=== PATIENT | male | born 1955 | race Two or more races ===

== ENCOUNTER 2023-10-01 18:31 | Emergency (ER) | payer SELFPAY ==
[~2023-10-01] VITALS: Ht 170.2 cm; Wt 57.3 kg
[2023-10-01 18:39] VITALS: BP 137/98; PULSE 74; RESP 16; TEMP 97.6; O2SAT 96
== END 2023-10-01 21:42 | disposition left against medical advice (07) ==
LOC: ER 18:32
DX: M79.89 Other specified soft tissue disorders (principal); H57.12 Ocular pain, left eye; Z53.21 Procedure and treatment not carried out due to patient leaving prior to being seen by health care provider
CPT/HCPCS: 73140

== ENCOUNTER 2023-12-24 19:38 | Inpatient (IN) | payer MEDICARE, MEDICAID ==
[~2023-12-24] VITALS: Ht 170.2 cm; Wt 65.0 kg
[2023-12-24 21:47] LABS: BASOPHILS % (AUTO) 0.2 % (0-1); EOSINOPHILS % (AUTO) 0.1 % (0-6); HEMATOCRIT 35.7 % (42.0-52.0); HEMOGLOBIN 11.9 g/dl (14.0-17.9); LYMPHOCYTES # (AUTO) 0.5 X10'3 (1.1-4.8); LYMPHOCYTES % (AUTO) 3.2 % (21-51); MEAN CORPUSCULAR HEMOGLOBIN 29.1 PG (27.0-31.0); MEAN CORPUSCULAR HGB CONC 33.2 g/dL (33.0-36.5); MEAN CORPUSCULAR VOLUME 87.7 FL (78-98); MEAN PLATELET VOLUME 5.8 FL (7.4-10.4); MONOCYTES % (AUTO) 7.2 % (2-12); NEUTROPHILS # (AUTO) 12.8 X10'3 (1.8-7.7); NEUTROPHILS % (AUTO) 89.3 % (42-75); PLATELET COUNT 230 X10'3 (140-440); RED BLOOD COUNT 4.07 X10'6 (4.70-6.10); RED CELL DISTRIBUTION WIDTH 15.2 % (11.5-14.5); WHITE BLOOD COUNT 14.3 X10'3 (4.5-11.0)
[2023-12-24] MEDS: normal saline 1000ML IV soln IV ONE (21:49)
[2023-12-24 22:01] LABS: ALANINE AMINOTRANSFERASE 57 U/L (12-78); ALBUMIN 4.1 G/DL (3.4-5.0); ALBUMIN/GLOBULIN RATIO 0.9 (1.1-1.5); ALKALINE PHOSPHATASE 92 IU/L (46-116); ANION GAP 11 (8-16); ASPARTATE AMINO TRANSFERASE 162 U/L (10-37); BILIRUBIN,TOTAL 1.9 MG/DL (0.1-1.0); BLOOD UREA NITROGEN 33 MG/DL (7-18); BUN/CREATININE RATIO 14.5 (10.0-20.0); CALCIUM 9.6 MG/DL (8.5-10.1); CHLORIDE 100 MMOL/L (99-107); CREATININE 2.28 MG/DL (0.60-1.10); ETHANOL < 10 MG/DL (<10); GLUCOSE 107 MG/DL (70-104); LIPASE 38 U/L (16-77); MAGNESIUM 2.8 MG/DL (1.5-2.4); POTASSIUM 3.8 MMOL/L (3.5-5.1); SODIUM 134 MMOL/L (135-145); TOTAL CARBON DIOXIDE 23.1 MMOL/L (24-32); TOTAL PROTEIN 8.5 G/DL (6.4-8.2); eCRCL 28 ML/MIN; eGFR 29 ML/MIN
[2023-12-24] MEDS ORDERED: heparin 10,000 units/1 ML INJ IV ONE (22:15)
[2023-12-24] MEDS: normal saline 1000ML IV soln IVB ONE (22:23)
[2023-12-24] MEDS: aspirin 81mg tab.chew PO ONE (22:27)
[2023-12-24] MEDS: heparin 25,000 UNIT/250ml bag 250 ML IV PRN (22:42)
[2023-12-24] MEDS: MESSAGE TO NURSING IV ONE (22:55)
[2023-12-24] MEDS: heparin 10,000 units/1 ML INJ IV PRN (22:56)
[2023-12-24 23:19] LABS: INR 1.1 INR; PROTHROMBIN TIME 12.2 SECONDS (9.0-12.0)
[2023-12-24 23:25] LABS: ANISOCYTOSIS FEW; PLATELET ESTIMATE NORMAL; TOTAL CELLS COUNTED 100
[2023-12-24 23:30] LABS: APTT 20 SECONDS (22-32)
[2023-12-24 23:47] LABS: CREATINE KINASE 7406 U/L (39-308)
[2023-12-24] MEDS: ringers solution, lacted 1,000 ML IV SCH (23:48)
[2023-12-25] VITALS (8 sets, daily range): BP systolic 127–144; BP diastolic 66–79; PULSE 70–98; RESP 13–21; TEMP 97.8–98.4; O2SAT 96–100
[2023-12-25] MEDS ORDERED: mag hydrox/Alum hydrox/simeth 30ml oral suspension PO PRN
[2023-12-25] MEDS ORDERED: potassium Cl 20 mEq SR tablet PO PRN ×2
[2023-12-25] MEDS ORDERED: acetaminophen 325mg tablet PO PRN
[2023-12-25] MEDS ORDERED: potassium Cl 40MEQ/1/2NS 520ml 520 ML IV PRN
[2023-12-25] MEDS ORDERED: magnesium hydroxide 30ml (MOM) UD suspension PO PRN
[2023-12-25] MEDS ORDERED: magnesium sulf-water 4G/100mL 100 ML IV PRN
[2023-12-25] MEDS ORDERED: ondansetron/PF 4mg/2ml inj IV PRN
[2023-12-25] MEDS ORDERED: magnesium Cl slow-release 64mg tablet PO PRN
[2023-12-25] MEDS ORDERED: magnesium sulf-water 2g/50mL 50 ML IV PRN
[2023-12-25] MEDS ORDERED: THIA100T66 PO (00:24)
[2023-12-25] MEDS ORDERED: LOSA50TA64 PO (00:24)
[2023-12-25] MEDS ORDERED: DOCU-392 PO (00:24)
[2023-12-25] MEDS ORDERED: AMIT25TA9 PO (00:24)
[2023-12-25] MEDS ORDERED: ASPI-1397 PO (00:24)
[2023-12-25] MEDS ORDERED: METO-395 PO (00:24)
[2023-12-25] MEDS ORDERED: AMLO10TA13 PO (00:24)
[2023-12-25 00:51] LABS: BILIRUBIN,URINE NEGATIVE (Neg); CLARITY,URINE CLEAR (Clear); COLOR,URINE YELLOW (Yellow); GLUCOSE, URINE NEGATIVE (Neg); KETONES,URINE TRACE mg/dl (Neg); LEUKOCYTE ESTERASE ,URINE NEGATIVE (Neg); NITRITES, URINE NEGATIVE (Neg); OCCULT BLOOD,URINE MODERATE (Neg); PROTEIN,URINE 30 mg/dl (Neg); UROBILINOGEN,URINE 0.2 E.U/dL (0.2-1.0)
[2023-12-25 00:54] LABS: UA COLLECTION TYPE URINAL
[2023-12-25 00:58] LABS: BACTERIA,URINE FEW /HPF (Neg); MUCUS STRANDS FEW /LPF (Neg); SQUAMOUS EPITHELIAL CELL,UR FEW /LPF (FEW); WBC,URINE 0-4 /HPF (0-4)
[2023-12-25 00:59] LABS: HEMOGLOBIN A1C 5.4 % (4.5-6.2)
[2023-12-25 00:59] LABS: SPERM FEW /HPF (NEGATIVE)
[2023-12-25 01:11] LABS: URINE AMPHETAMINE SCREEN NEGATIVE (Neg); URINE BARBITUATE SCREEN NEGATIVE (Neg); URINE BENZODIAZEPINES SCREEN NEGATIVE (Neg); URINE CANNABINOID SCREEN NEGATIVE (Neg); URINE COCAINE SCREEN NEGATIVE (Neg); URINE METHADONE SCREEN NEGATIVE (Neg); URINE OPIATE SCREEN NEGATIVE (Neg); URINE PHENCYCLIDINE SCREEN NEGATIVE (Neg)
[2023-12-25] MEDS: sodium bicarbonate (8.4%) 1 mEq/ml syringe IV ONE (01:23)
[2023-12-25 02:35] LABS: BASOPHILS % (AUTO) 0.2 % (0-1); EOSINOPHILS % (AUTO) 0.2 % (0-6); HEMATOCRIT 32.5 % (42.0-52.0); HEMOGLOBIN 10.8 g/dl (14.0-17.9); LYMPHOCYTES # (AUTO) 0.6 X10'3 (1.1-4.8); LYMPHOCYTES % (AUTO) 5.4 % (21-51); MEAN CORPUSCULAR HEMOGLOBIN 28.9 PG (27.0-31.0); MEAN CORPUSCULAR HGB CONC 33.2 g/dL (33.0-36.5); MEAN CORPUSCULAR VOLUME 87.1 FL (78-98); MEAN PLATELET VOLUME 5.8 FL (7.4-10.4); MONOCYTES # (AUTO) 0.8 X10'3 (0-0.9); MONOCYTES % (AUTO) 6.9 % (2-12); NEUTROPHILS # (AUTO) 9.8 X10'3 (1.8-7.7); NEUTROPHILS % (AUTO) 87.3 % (42-75); PLATELET COUNT 188 X10'3 (140-440); RED BLOOD COUNT 3.73 X10'6 (4.70-6.10); RED CELL DISTRIBUTION WIDTH 15.5 % (11.5-14.5); WHITE BLOOD COUNT 11.3 X10'3 (4.5-11.0)
[2023-12-25 02:46] LABS: ALANINE AMINOTRANSFERASE 94 U/L (12-78); ALBUMIN 3.4 G/DL (3.4-5.0); ALBUMIN/GLOBULIN RATIO 0.9 (1.1-1.5); ALKALINE PHOSPHATASE 79 IU/L (46-116); ANION GAP 9 (8-16); ASPARTATE AMINO TRANSFERASE 306 U/L (10-37); BILIRUBIN,TOTAL 1.8 MG/DL (0.1-1.0); BLOOD UREA NITROGEN 27 MG/DL (7-18); BUN/CREATININE RATIO 17.8 (10.0-20.0); CALCIUM 8.5 MG/DL (8.5-10.1); CHLORIDE 102 MMOL/L (99-107); CREATININE 1.52 MG/DL (0.60-1.10); GLUCOSE 126 MG/DL (70-104); POTASSIUM 3.5 MMOL/L (3.5-5.1); SODIUM 137 MMOL/L (135-145); TOTAL CARBON DIOXIDE 26.5 MMOL/L (24-32); TOTAL PROTEIN 7.3 G/DL (6.4-8.2); eCRCL 42 ML/MIN; eGFR 46 ML/MIN
[2023-12-25 02:56] LABS: MAGNESIUM 2.4 MG/DL (1.5-2.4); PHOSPHORUS 4.2 MG/DL (2.3-4.5)
[2023-12-25 03:13] LABS: CREATINE KINASE 14189 U/L (39-308)
[2023-12-25 06:55] LABS: APTT 25 SECONDS (22-32)
[2023-12-25] MEDS: docusate sod 100mg capsule PO SCH (07:17)
[2023-12-25 07:27] LABS: CREATINE KINASE 24224 U/L (39-308)
[2023-12-25] MEDS: K and/or MAG REPLACEMENT MC SCH (08:00)
[2023-12-25] MEDS: morphine 2 MG/ML inj. syringe IV PRN (20:33)
[2023-12-26] VITALS (7 sets, daily range): BP systolic 131–154; BP diastolic 77–86; PULSE 62–76; RESP 12–22; TEMP 97.8–98.4; O2SAT 97–98
[2023-12-26 07:00] LABS: BASOPHILS % (AUTO) 0.4 % (0-1); EOSINOPHILS # (AUTO) 0.5 X10'3 (0-0.9); EOSINOPHILS % (AUTO) 7.4 % (0-6); HEMATOCRIT 31.3 % (42.0-52.0); HEMOGLOBIN 10.3 g/dl (14.0-17.9); LYMPHOCYTES # (AUTO) 0.8 X10'3 (1.1-4.8); LYMPHOCYTES % (AUTO) 11.8 % (21-51); MEAN CORPUSCULAR HEMOGLOBIN 28.8 PG (27.0-31.0); MEAN CORPUSCULAR HGB CONC 32.8 g/dL (33.0-36.5); MEAN CORPUSCULAR VOLUME 87.8 FL (78-98); MEAN PLATELET VOLUME 5.8 FL (7.4-10.4); MONOCYTES # (AUTO) 0.5 X10'3 (0-0.9); MONOCYTES % (AUTO) 7.4 % (2-12); PLATELET COUNT 180 X10'3 (140-440); RED BLOOD COUNT 3.56 X10'6 (4.70-6.10); RED CELL DISTRIBUTION WIDTH 15.1 % (11.5-14.5); WHITE BLOOD COUNT 6.8 X10'3 (4.5-11.0)
[2023-12-26 07:32] LABS: ALANINE AMINOTRANSFERASE 302 U/L (12-78); ALBUMIN 3.1 G/DL (3.4-5.0); ALBUMIN/GLOBULIN RATIO 0.9 (1.1-1.5); ALKALINE PHOSPHATASE 70 IU/L (46-116); ANION GAP 2 (8-16); ASPARTATE AMINO TRANSFERASE 704 U/L (10-37); BILIRUBIN,TOTAL 1.5 MG/DL (0.1-1.0); BLOOD UREA NITROGEN 13 MG/DL (7-18); BUN/CREATININE RATIO 16.7 (10.0-20.0); CALCIUM 8.6 MG/DL (8.5-10.1); CHLORIDE 101 MMOL/L (99-107); CREATININE 0.78 MG/DL (0.60-1.10); GLUCOSE 104 MG/DL (70-104); MAGNESIUM 1.6 MG/DL (1.5-2.4); PHOSPHORUS 2.9 MG/DL (2.3-4.5); POTASSIUM 3.7 MMOL/L (3.5-5.1); SODIUM 133 MMOL/L (135-145); TOTAL CARBON DIOXIDE 29.7 MMOL/L (24-32); TOTAL PROTEIN 6.7 G/DL (6.4-8.2); eCRCL 81 ML/MIN; eGFR > 90 ML/MIN
[2023-12-26 08:20] LABS: CREATINE KINASE 21299 U/L (39-308)
[2023-12-26] MEDS: morphine 2 MG/ML inj. syringe IV PRN (20:40)
[2023-12-26] MEDS ORDERED: NO HOME MEDS (20:47)
[2023-12-27 07:00] VITALS: BP 130/82; PULSE 67; RESP 18; TEMP 99; O2SAT 99
[2023-12-27 07:26] LABS: BASOPHILS % (AUTO) 0.3 % (0-1); EOSINOPHILS # (AUTO) 0.7 X10'3 (0-0.9); HEMATOCRIT 32.9 % (42.0-52.0); HEMOGLOBIN 11.2 g/dl (14.0-17.9); LYMPHOCYTES # (AUTO) 0.8 X10'3 (1.1-4.8); LYMPHOCYTES % (AUTO) 10.3 % (21-51); MEAN CORPUSCULAR HEMOGLOBIN 30.1 PG (27.0-31.0); MEAN CORPUSCULAR HGB CONC 34.1 g/dL (33.0-36.5); MEAN CORPUSCULAR VOLUME 88.2 FL (78-98); MEAN PLATELET VOLUME 6.1 FL (7.4-10.4); MONOCYTES # (AUTO) 0.7 X10'3 (0-0.9); MONOCYTES % (AUTO) 8.9 % (2-12); NEUTROPHILS # (AUTO) 5.2 X10'3 (1.8-7.7); NEUTROPHILS % (AUTO) 70.5 % (42-75); PLATELET COUNT 185 X10'3 (140-440); RED BLOOD COUNT 3.73 X10'6 (4.70-6.10); RED CELL DISTRIBUTION WIDTH 14.9 % (11.5-14.5); WHITE BLOOD COUNT 7.3 X10'3 (4.5-11.0)
[2023-12-27 08:00] VITALS: RESP 18; O2SAT 98
[2023-12-27 08:09] LABS: ALANINE AMINOTRANSFERASE 323 U/L (12-78); ALBUMIN 3.2 G/DL (3.4-5.0); ALBUMIN/GLOBULIN RATIO 0.8 (1.1-1.5); ALKALINE PHOSPHATASE 80 IU/L (46-116); ANION GAP 4 (8-16); ASPARTATE AMINO TRANSFERASE 562 U/L (10-37); BILIRUBIN,TOTAL 1.5 MG/DL (0.1-1.0); BLOOD UREA NITROGEN 9 MG/DL (7-18); BUN/CREATININE RATIO 12.2 (10.0-20.0); CALCIUM 8.8 MG/DL (8.5-10.1); CHLORIDE 97 MMOL/L (99-107); CREATININE 0.74 MG/DL (0.60-1.10); GLUCOSE 105 MG/DL (70-104); MAGNESIUM 1.5 MG/DL (1.5-2.4); PHOSPHORUS 3.5 MG/DL (2.3-4.5); POTASSIUM 3.9 MMOL/L (3.5-5.1); SODIUM 131 MMOL/L (135-145); TOTAL CARBON DIOXIDE 30.1 MMOL/L (24-32); TOTAL PROTEIN 7.2 G/DL (6.4-8.2); eCRCL 85 ML/MIN; eGFR > 90 ML/MIN
[2023-12-27 09:34] LABS: CREATINE KINASE 10965 U/L (39-308)
[2023-12-27 11:00] VITALS: BP 141/87; PULSE 80; RESP 16; TEMP 97.7; O2SAT 98
[2023-12-27 18:00] VITALS: BP 151/81; PULSE 73; RESP 21; TEMP 97.7; O2SAT 96
[2023-12-27 20:00] VITALS: RESP 21; O2SAT 96
[2023-12-28] VITALS (8 sets, daily range): BP systolic 143–176; BP diastolic 80–97; PULSE 60–80; RESP 16–22; TEMP 97.5–99.7; O2SAT 93–98
[2023-12-28 06:19] LABS: BASOPHILS % (AUTO) 0.6 % (0-1); EOSINOPHILS # (AUTO) 0.6 X10'3 (0-0.9); EOSINOPHILS % (AUTO) 11.1 % (0-6); HEMATOCRIT 33.8 % (42.0-52.0); HEMOGLOBIN 11.2 g/dl (14.0-17.9); LYMPHOCYTES # (AUTO) 0.8 X10'3 (1.1-4.8); LYMPHOCYTES % (AUTO) 13.1 % (21-51); MEAN CORPUSCULAR HEMOGLOBIN 29.2 PG (27.0-31.0); MEAN CORPUSCULAR HGB CONC 33.2 g/dL (33.0-36.5); MEAN CORPUSCULAR VOLUME 88.1 FL (78-98); MEAN PLATELET VOLUME 6.1 FL (7.4-10.4); MONOCYTES # (AUTO) 0.7 X10'3 (0-0.9); MONOCYTES % (AUTO) 12.5 % (2-12); NEUTROPHILS # (AUTO) 3.7 X10'3 (1.8-7.7); NEUTROPHILS % (AUTO) 62.7 % (42-75); PLATELET COUNT 198 X10'3 (140-440); RED BLOOD COUNT 3.84 X10'6 (4.70-6.10); RED CELL DISTRIBUTION WIDTH 14.7 % (11.5-14.5); WHITE BLOOD COUNT 5.9 X10'3 (4.5-11.0)
[2023-12-28 06:52] LABS: ALANINE AMINOTRANSFERASE 277 U/L (12-78); ALBUMIN 3.2 G/DL (3.4-5.0); ALBUMIN/GLOBULIN RATIO 0.8 (1.1-1.5); ALKALINE PHOSPHATASE 91 IU/L (46-116); ANION GAP 5 (8-16); ASPARTATE AMINO TRANSFERASE 424 U/L (10-37); BILIRUBIN,TOTAL 1.4 MG/DL (0.1-1.0); BLOOD UREA NITROGEN 10 MG/DL (7-18); BUN/CREATININE RATIO 13.5 (10.0-20.0); CHLORIDE 97 MMOL/L (99-107); CREATININE 0.74 MG/DL (0.60-1.10); GLUCOSE 102 MG/DL (70-104); MAGNESIUM 1.7 MG/DL (1.5-2.4); PHOSPHORUS 3.9 MG/DL (2.3-4.5); POTASSIUM 4.2 MMOL/L (3.5-5.1); SODIUM 133 MMOL/L (135-145); TOTAL CARBON DIOXIDE 30.8 MMOL/L (24-32); TOTAL PROTEIN 7.4 G/DL (6.4-8.2); eCRCL 85 ML/MIN; eGFR > 90 ML/MIN
[2023-12-28 06:53] LABS: CREATINE KINASE 6400 U/L (39-308)
[2023-12-29 02:00] VITALS: BP 138/71; PULSE 77; RESP 18; TEMP 98.1; O2SAT 97
[2023-12-29 06:14] LABS: BASOPHILS % (AUTO) 0.3 % (0-1); EOSINOPHILS # (AUTO) 0.8 X10'3 (0-0.9); EOSINOPHILS % (AUTO) 12.2 % (0-6); HEMOGLOBIN 11.5 g/dl (14.0-17.9); LYMPHOCYTES # (AUTO) 0.8 X10'3 (1.1-4.8); LYMPHOCYTES % (AUTO) 12.4 % (21-51); MEAN CORPUSCULAR HEMOGLOBIN 29.9 PG (27.0-31.0); MEAN CORPUSCULAR VOLUME 87.9 FL (78-98); MEAN PLATELET VOLUME 5.9 FL (7.4-10.4); MONOCYTES # (AUTO) 0.9 X10'3 (0-0.9); MONOCYTES % (AUTO) 14.2 % (2-12); NEUTROPHILS % (AUTO) 60.9 % (42-75); PLATELET COUNT 207 X10'3 (140-440); RED BLOOD COUNT 3.86 X10'6 (4.70-6.10); RED CELL DISTRIBUTION WIDTH 14.9 % (11.5-14.5); WHITE BLOOD COUNT 6.6 X10'3 (4.5-11.0)
[2023-12-29 06:37] LABS: ALANINE AMINOTRANSFERASE 261 U/L (12-78); ALBUMIN 3.3 G/DL (3.4-5.0); ALBUMIN/GLOBULIN RATIO 0.8 (1.1-1.5); ALKALINE PHOSPHATASE 97 IU/L (46-116); ANION GAP 1 (8-16); ASPARTATE AMINO TRANSFERASE 340 U/L (10-37); BILIRUBIN,TOTAL 1.1 MG/DL (0.1-1.0); BLOOD UREA NITROGEN 13 MG/DL (7-18); BUN/CREATININE RATIO 19.1 (10.0-20.0); CALCIUM 9.3 MG/DL (8.5-10.1); CHLORIDE 97 MMOL/L (99-107); CREATININE 0.68 MG/DL (0.60-1.10); GLUCOSE 104 MG/DL (70-104); MAGNESIUM 1.8 MG/DL (1.5-2.4); PHOSPHORUS 3.9 MG/DL (2.3-4.5); POTASSIUM 4.3 MMOL/L (3.5-5.1); SODIUM 131 MMOL/L (135-145); TOTAL PROTEIN 7.7 G/DL (6.4-8.2); eCRCL 93 ML/MIN; eGFR > 90 ML/MIN
[2023-12-29 06:51] LABS: CREATINE KINASE 4151 U/L (39-308)
[2023-12-29 07:00] VITALS: BP 159/89; PULSE 71; RESP 18; TEMP 97.2; O2SAT 100
[2023-12-29 10:00] VITALS: BP 146/89; PULSE 71; RESP 16; TEMP 97.9; O2SAT 97
[2023-12-29 10:49] VITALS: RESP 18; O2SAT 97
[2023-12-29] MEDS: valacyclovir 500mg tablet PO SCH (13:49)
[2023-12-29 18:00] VITALS: BP 156/87; PULSE 70; RESP 16; TEMP 98.4; O2SAT 96
[2023-12-29 22:00] VITALS: BP 152/86; PULSE 69; RESP 13; TEMP 97.6; O2SAT 98
[2023-12-30 05:33] LABS: HEP B CORE AB, IGM Negative (Negative); HEPATITIS C VIRUS ANTIBODY Non Reactive (Non Reactive)
[2023-12-30 06:00] VITALS: BP 157/93; PULSE 71; RESP 16; TEMP 98.7; O2SAT 100
[2023-12-30 08:00] VITALS: RESP 16; O2SAT 100
[2023-12-30] MEDS ORDERED: VALA500T41 PO (11:13)
== END 2023-12-30 14:10 | disposition home or self-care (01) | DRG 871 ==
LOC: ER 19:38 → ED HOLD 12-25 00:06 → PCU 3S 12-25 03:05 → ORTHO 4S 12-29 10:02
PROVIDERS: ADMIT Internal Medicine Critical Care Medicine; ATTEND Internal Medicine
DX: A41.9 Sepsis, unspecified organism (principal); G93.41 Metabolic encephalopathy; I21.A1 Myocardial infarction type 2; N17.9 Acute kidney failure, unspecified; B00.2 Herpesviral gingivostomatitis and pharyngotonsillitis; E86.0 Dehydration; Z20.822 Contact with and (suspected) exposure to COVID-19; T79.6XXA Traumatic ischemia of muscle, initial encounter; K71.6 Toxic liver disease with hepatitis, not elsewhere classified; I10 Essential (primary) hypertension; B00.1 Herpesviral vesicular dermatitis; W18.39XA Other fall on same level, initial encounter; Y93.89 Activity, other specified; Z87.891 Personal history of nicotine dependence; Y92.89 Other specified places as the place of occurrence of the external cause; Y99.8 Other external cause status; Z79.82 Long term (current) use of aspirin; Z79.899 Other long term (current) drug therapy
CPT/HCPCS: 36415; 70450; 71045; 76700; 80053; 80305; 80320; 81001; 82550; 83036; 83605; 83690; 83735; 83874; 84100; 84145; 84484; 85007; 85025; 85610; 85730; 86705; 86803; 87040; 87081; 87522; 87811; 93005; 93306; 93880; 97110; 97116; 97162; 99291; A6212; A6213; A6223; A6258; A6449; G0378; J1644; J2270; J3490; J7030; J7120

== ENCOUNTER 2024-01-12 16:18 | Emergency (ER) | payer MEDICARE, MEDICAID ==
[~2024-01-12] VITALS: Ht 170.2 cm; Wt 61.0 kg
[~2024-01-12 16:18] MED LIST: VALA500T41 PO
[2024-01-12 16:48] VITALS: BP 160/64; PULSE 56; RESP 16; TEMP 98.1; O2SAT 99
[2024-01-12] MEDS: ketorolac tromethamine 0.5% ophthalmic drops LEFTEYE SCH (17:40)
== END 2024-01-12 18:03 | disposition home or self-care (01) ==
LOC: ER 16:19
DX: T78.49XA Other allergy, initial encounter (principal); H57.11 Ocular pain, right eye; Z79.899 Other long term (current) drug therapy; X58.XXXA Exposure to other specified factors, initial encounter
CPT/HCPCS: 99283

== ENCOUNTER 2024-02-07 16:13 | Emergency (ER) | payer MEDICARE, MEDICAID ==
[~2024-02-07] VITALS: Ht 170.2 cm; Wt 68.2 kg
[2024-02-07 16:23] VITALS: TEMP 97.8
[2024-02-07 18:12] VITALS: BP 121/66; PULSE 55; RESP 16; O2SAT 95
== END 2024-02-07 18:19 | disposition home or self-care (01) ==
LOC: ER 16:14
DX: S00.93XA Contusion of unspecified part of head, initial encounter (principal); S50.311A Abrasion of right elbow, initial encounter; S60.511A Abrasion of right hand, initial encounter; F10.129 Alcohol abuse with intoxication, unspecified; R51.9 Headache, unspecified; M54.2 Cervicalgia; Z79.2 Long term (current) use of antibiotics; W19.XXXA Unspecified fall, initial encounter; Y93.89 Activity, other specified; Y92.89 Other specified places as the place of occurrence of the external cause; Y99.8 Other external cause status; Y90.9 Presence of alcohol in blood, level not specified
CPT/HCPCS: 70450; 70486; 72125; 99284

== ENCOUNTER 2024-04-19 18:15 | Emergency (ER) | payer MEDICARE, MEDICAID ==
[~2024-04-19] VITALS: Ht 170.2 cm; Wt 68.0 kg
[2024-04-19 18:28] VITALS: BP 157/72; PULSE 65; TEMP 98.5; O2SAT 97
[2024-04-19 19:21] VITALS: RESP 14
== END 2024-04-19 20:04 | disposition home or self-care (01) ==
LOC: ER 18:16
DX: F10.129 Alcohol abuse with intoxication, unspecified (principal)
CPT/HCPCS: 99284